=== PATIENT | male | born 1995 | race Two or more races ===

== ENCOUNTER 2020-04-22 16:16 | Emergency (ER) | payer MEDICAID, SELFPAY ==
[2020-04-22 17:00] VITALS: BP 136/76; PULSE 69; RESP 16; TEMP 37.1; O2SAT 98; BMI 36.4
--- NOTE | 2020-04-22 17:16 | HMH.EDUTC ---
[facility] [place] Clinical Impression: Exposure to COVID-19 virus Disposition: Home, Self-Care Condition on Discharge: Good Instructions: Preventing the Spread of Coronavirus Discharge Instructions Additional Instructions: Drink plenty of fluids. Take tylenol for pain or fever. Return if you begin to have difficulty breathing. Follow up with your regular doctor. GO TO THE ER FOR ANY WORSENING SYMPTOMS Referrals: PCP,No [Primary Care Provider] - Time of Disposition: 17:17 Medical Decision Making - Medical Records Medical records reviewed: No: I reviewed the patient's medical records. - Dex Inquiry Pt receiving controlled substance: No Vital Signs: 04/22/20 17:00 Temperature 98.7 F Temperature Source Oral Pulse Rate [Right Brachial] 69 Respiratory Rate 16 Blood Pressure [Right Arm] 136/76 Blood Pressure Mean [Right Arm] 96 Blood Pressure Source [Right Arm] Automatic Cuff Blood Pressure Position [Right Arm] Sitting 02 Sat by Pulse Oximetry 98 Oxygen Delivery Method Room Air Orders (Tests/Meds): ORDERS Category Date Time Status Covid-19 Nasal PCR Sendout Anthony Routine Lab 04/22/20 16:44 Ordered [facility] [place] - General Stated complaint: cov test Time Seen by Provider: 04/22/20 17:16 Mode of Arrival: Ambulatory Source of Information: Patient Limitations: No Limitations Description of Symptoms (Recalled from Triage Doc. by RN): PATIENT REQUESTING COVID TEST D/T EXPOSURE; DENIES SYMPTOMS HEENT Symptoms (Recalled from RN notes): No Resp Symptoms (Recalled from RN notes): No Skin Symptoms (Recalled from RN notes): No MS Symptoms (Recalled from RN notes): No Functional Status (Recalled from RN notes): WNL - History of Present Illness Provider Complaint: He states that he was exposed to covid-19 earlier this week. He denies any symptoms. - Related Data Home Medications Medication Instructions Recorded Confirmed Unobtainable 06/17/18 06/17/18 Allergies Allergy/AdvReac Type Severity Reaction Status Date / Time No Known Allergies Allergy Verified 06/17/18 19:54 - Worker's Comp Is this a Worker's Comp case?: No [facility] History - Hepatitis A Screen Drug use history?: No High risk sexual behaviors?: No History of sexually transmitted infection?: No Currently employed?: No Childcare worker?: No Do you have indoor plumbing?: Yes Do you have electricity?: Yes Attestation statement:: This patient has been screened for Hepatitis A risk factors. I have reviewed the patient's past medical history: Yes - Social History Alcohol Intake: never Occupational Status: other ROS Obtained: Yes All systems reviewed & no additional complaints - Constitutional Constitutional: Reports system reviewed and no additional complaints, except as docu - Eyes Eyes: Reports system reviewed and no additional complaints, except as docu - ENT Ears, Nose, Mouth, and Throat: Reports system reviewed and no additional complaints, except as docu - Cardiovascular Cardiovascular: Reports system reviewed and no additional complaints, except as docu - Respiratory Respiratory: Yes system reviewed and no additional complaints, except as docu - Gastrointestinal Gastrointestingal: Reports: system reviewed and no additional complaints, except as docu Physical Exam - General General appearance: alert, in no apparent distress - Head Head exam: atraumatic, normocephalic, normal inspection - Eye Eye exam: Present: normal appearance, PERRL, EOMI - ENT ENT exam: Present: normal exam, normal oropharynx, mucous membranes moist, TM's normal bilaterally, normal external ear exam - Neck Neck exam: Present: normal inspection, full ROM, trachea midline. Absent: meningismus, lymphadenopathy - Chest Chest inspection: Present: normal inspection, symmetric chest wall rise. Absent: tenderness - Respiratory Respiratory exam: Present: normal lung sounds bilaterally. Absent: respirator
[2020-04-22 17:22] VITALS: BP 136/76; PULSE 69; RESP 16; TEMP 37.1; O2SAT 98
[2020-04-24 14:04] LABS: Covid-19 Nasal PCR Sendout Lex Not Detected
== END 2020-04-22 17:25 | disposition home or self-care (01) ==
PROVIDERS: Emergency Provider Nurse Practitioner Family
DX: Z20.828 Contact with and (suspected) exposure to other viral communicable diseases (principal)
CPT/HCPCS: 99201; U0004

== ENCOUNTER 2024-06-09 01:51 | Emergency (ER) | payer SELFPAY ==
[2024-06-09 02:02] VITALS: BP 157/92; PULSE 87; RESP 20; TEMP 36.8; O2SAT 100; BMI 37.2
[2024-06-09 02:05] VITALS: BP 153/89; PULSE 75; RESP 18; O2SAT 96
--- NOTE | 2024-06-09 02:06 | PC.NURSE ---
Pt awake and alert States he was a daily drinker and quit on . Now having abd pain. Skin pink warm and dry Resp full and easy Abd soft and tender in RLQ and LLQ. +bowel sounds x4. Speech clear and appropriate
--- NOTE | 2024-06-09 02:14 | CT_ITS ---
PROCEDURE INFORMATION: Exam: CT Abdomen And Pelvis With Contrast Exam date and time: 06/09/2024 2:50 AM Age: 29 years old Clinical indication: Abdominal pain; Additional info: Low abd pain/burning sensation TECHNIQUE: Imaging protocol: Computed tomography of the abdomen and pelvis with contrast. Radiation optimization: All CT scans at this facility use at least one of these dose optimization techniques: automated exposure control; mA and/or kV adjustment per patient size (includes targeted exams where dose is matched to clinical indication); or iterative reconstruction. Contrast material: ISOVUE; Contrast volume: 75 ml; Contrast route: IV; COMPARISON: No relevant prior studies available. FINDINGS: Liver: Normal. No mass. Gallbladder and biliary ducts: Normal. No calcified stones. No ductal dilation. Pancreas: Normal. No ductal dilation. Spleen: Normal. No splenomegaly. Adrenal glands: Normal. No mass. Kidneys and ureters: Normal. No hydronephrosis. Stomach and bowel: Diverticulosis sigmoid colon. Appendix: No evidence of appendicitis. Intraperitoneal space: Unremarkable. No free air. No significant fluid collection. Vasculature: Unremarkable. No abdominal aortic aneurysm. Lymph nodes: Unremarkable. No enlarged lymph nodes. Urinary bladder: Unremarkable as visualized. Reproductive: Unremarkable as visualized. Bones/joints: Unremarkable. No acute fracture. Soft tissues: Unremarkable. IMPRESSION: Diverticulosis without CT evidence of acute diverticulitis.
[2024-06-09 02:18] LABS: Microscopic, Urine URINE MICROSCOPIC (MICROSCOPIC)
[2024-06-09 02:21] LABS: Appearance,Urine CLEAR (Clear); Bilirubin,Urine Negative (Negative); Blood, Urine Negative (Negative); Color,Urine YELLOW (Yellow); Glucose,Urine (UA) Negative (Negative); Ketones,Urine TRACE (Negative); Leukocyte Esterase,Urine Negative (Negative); Nitrate,Urine Negative (Negative); Protein,Urine Negative (Negative)
[2024-06-09 02:34] LABS: Squamous Epithelial Cell,Urine Occasional #/hpf (0-5)
[2024-06-09] MEDS: ONDANSETRON 4MG/2ML VIAL 4 MG IV (02:37)
[2024-06-09] MEDS: MORPHINE 4MG/ML SYRINGE 4 MG IV (02:37)
[2024-06-09] MEDS: LACTATED RINGERS 1000ML 1,000 ML 999 ML IV (02:37)
--- NOTE | 2024-06-09 02:37 | HMH.EDGENADL ---
Discharge Plan Disposition Patient Disposition: Home, Self-Care Condition: Good Prescriptions Prescriptions: New doxycycline hyclate 100 mg tablet 100 mg PO BID 10 Days Qty: 20 0RF Referrals Follow up/Referrals: Sammy Lara MD [Staff Physician] - See instructions (cystitis symptoms, epididymitis symptoms, reassuring workup) Provider,MD Heather [Primary Care Provider] - See instructions Activity Restrictions/Add. Instructions Additional Instructions/Restrictions: You were evaluated in the ER and are appropriate for discharge at this time. Take the prescribed antibiotics as directed, do not skip doses, do not stop taking them early. Drink plenty of water. Follow the results of your tests in the patient portal, we will call you if you test positive. If you do test positive, any sexual partners should present to primary care, urgent care, or ER for treatment. Wear a jockstrap or tight fitting underwear for testicular support to relieve discomfort. Follow-up with your primary care doctor for reevaluation in a few days. You have also been referred to urology for outpatient follow-up if your symptoms persist. Call them for an appointment. Return to the ER with new, worsening, or otherwise concerning symptoms. Clinical Impressions Clinical Impression: Epididymitis Instructions Patient Instructions: DI for Acute Abdominal Pain Print Language Print Language: Georgian Discharge ED Provider: Jonathon Flanagan Adult HPI General Chief complaint: Abdominal Pain Stated complaint: abd pain, pain with urination Time Seen by Provider: 06/09/24 02:05 Mode of Arrival: Ambulatory Source of Information: Patient Limitations: No Limitations Description of Symptoms (Recalled from ER Triage Doc. by RN): abdominal pain Pain with urination Saw the health dept Sunday to be checked for STI does not know results, Stopped drinking . Was a daily drinker History of Present Illness HPI narrative: 29-year-old male presents to the ER with lower abdominal pain and burning sensation. He states he does not have pain with urination but feels like his bladder is burning. Individual at bedside with the patient also reports he has some sensitivity at the tip of the penis, patient reports he has not had testicular pain. Patient reports he stopped drinking , and 05/29/2024, 11 days ago. He reports he had tremors, anxiety, nausea during his withdrawal but all of this has resolved. In the last few days he has developed the discomfort in his low abdomen and burning sensation of the bladder. He reports he also stopped using marijuana at the same time that he stopped drinking alcohol. He reports he had previously been a daily drinker and had gotten drunk every day. Patient reports he used to take blood pressure medication but became unable to get it from the pharmacy due to insurance reasons. He reports he was tested at the health department a week ago for STD but never heard the results. He reports he has not had fevers, vomiting, diarrhea, constipation, he has no chest pain, difficulty breathing, numbness, tingling, or weakness. He denies any known drug allergies. Related Data Previous Rx's ?Medication ?Instructions ?Recorded doxycycline hyclate 100 mg tablet 100 mg PO BID 10 days #20 tabs 06/09/24 Allergies Allergy/AdvReac Type Severity Reaction Status Date / Time No Known Allergies Allergy Verified 10/12/21 09:00 [facility] Disclaimer: The information contained in this section may have been updated after the patient was seen, as this information can be updated by other users. Social History Smoking Status: Current every day smoker alcohol intake: current alcohol intake frequency: a few times a week substance use type: marijuana current occupational status: employed Travel in the last 8 weeks: None current occupational exposures/hazards: No Have you lived/traveled outside [place] in past 30 days?: No Contact w/someone who lives/traveled outside US past 30 days?: No Exposure to someone with infectious disease in past 14 days?: No Do you have a fever (greater than 100.4 F or 38 C)?: No Have you tested positive for COVID-19: No Exposed to someone with COVID-19 in past 14 days?: No Do you have a sore throat?: No Do you have a cough?: No Do you have any weakness?: No Do you have any diarrhea?: No Are you experiencing any unusual bleeding?: No Do you have any muscle aches/pain?: No Do you have any abdominal pain?: Yes Are you experiencing loss of taste or smell?: No ROS Obtained: Yes Systems reviewed as appropriate & no additional complaints except as documented Per HPI Physical Exam General General appearance: alert, in no apparent distress and obese Head Head exam: atraumatic and normocephalic Eye Eye exam: Present PERRL and EOMI ENT ENT exam: Present mucous membranes moist Neck Neck exam: Present normal inspection and full ROM Chest Chest inspection: Present symmetric chest wall rise Respiratory Respiratory exam: Present normal lung sounds bilaterally; Absent respiratory distress, wheezes or stridor Cardiovascular Cardiovascular exam: Present regular rate and normal rhythm Abdominal Exam Abdominal exam: Present soft and tenderness (Suprapubic); Absent distention, guarding, rebound or rigidity exam: Present normal inspection (No lesions), normal testicular lie and other (Epididymal tenderness bilaterally; perinatal educator present for exam); Absent testicular tenderness, urethral discharge or scrotal swelling Extremities Exam Extremities exam: Present full ROM; Absent edema Neurological Exam Neurological exam: Present alert and oriented X3; Absent motor sensory deficit Psychiatric Psychiatric exam: Present normal affect and normal mood Skin Skin exam: Present warm and dry Medical Decision Making Medical Records Medical records reviewed: Yes I reviewed the patient's medical records. Screening: Per USPSTF and CDC recommendations, given the prevalence of disease in our region, it is our hospital?s policy to screen for HIV and viral Hepatitis for all patients aged 18 and over and those with ongoing risk factors. MR Comment: Patient has limited records within our system. Most recent record that was available for review was from 10/12/2021 when patient was evaluated by podiatry for concerns of a lesion on his right foot. He had a wart removed and then developed a blister. Dex Inquiry Pt receiving controlled substance: No Vital Signs: 06/09/24 02:02 06/09/24 02:05 06/09/24 03:19 Temperature 98.3 F Temperature Source Oral Pulse Rate 75 69 Pulse Rate [Right Brachial] 87 Respiratory Rate 20 18 18 Blood Pressure 153/89 H 121/67 Blood Pressure [Right Arm] 157/92 H Blood Pressure Mean [Right Arm] 113 Blood Pressure Source [Right Arm] Automatic Cuff 02 Sat by Pulse Oximetry 100 96 100 Oxygen Delivery Method Room Air Room Air Room Air Lab Data Lab Results 06/09/24 02:00: Urine Color Yellow, Urine Appearance Clear, Urine pH 6.0, Ur Specific [place] 1.010, Urine Protein Negative, Urine Glucose (UA) Negative, Urine Ketones Trace, Urine Blood Negative, Urine Nitrate Negative, Urine Bilirubin Negative, Urine Urobilinogen 4.0, Ur Leukocyte Esterase Negative, Urine RBC None, Urine WBC None, Ur Squamous Epith Cells Occasional, Urine Bacteria None 06/09/24 02:31: WBC 7.6, RBC 4.67, Hgb 13.8 L, Hct 39.5 L, MCV 84.6, MCH 29.6, MCHC 34.9, RDW 12.6, Plt Count 206, MPV 11.3 H, Neut % (Auto) 54.6, Lymph % (Auto) 30.9, Stephens % (Auto) 8.8, Eos % (Auto) 4.5, Baso % (Auto) 1.1, Neut # (Auto) 4.1, Lymph # (Auto) 2.3, Stephens # (Auto) 0.7, Eos # (Auto) 0.3, Baso # (Auto) 0.1, PT 12.7 H, INR 1.17 H, Sodium 140, Potassium 3.4 L, Chloride 104, Carbon Dioxide 25, Anion Gap 14.4, BUN 11, Creatinine 0.90, Estimated Creat Clear 198, Estimated GFR 100, Est GFR ( Amer) 122, Glucose 105 H, Lactate 0.6 L, Calcium 9.5, Total Bilirubin 1.4 H, AST 28, ALT 22, Alkaline Phosphatase 56, Total Protein 7.6, Albumin 4.6, Globulin 3.0, Albumin/Globulin Ratio 1.5, Lipase 159 06/09/24 02:31 06/09/24 02:31 Orders (Tests/Meds): ED MEDICATIONS Generic Name Dose Route Start Last Admin Trade Name Freq PRN Reason Stop Dose Admin Sodium Chloride 10 ml 06/09/24 03:04 06/09/24 03:05 Sodium Chloride 0.9% 10ml Syr (Rad Only) IV 07/09/24 03:03 10 ml NEEDED PRN Administration Maintain IV Site Discontinued Medications Generic Name Dose Route Start Last Admin Trade Name Freq PRN Reason Stop Dose Admin Acetaminophen 1,000 mg 06/09/24 03:29 06/09/24 03:38 Acetaminophen 500mg Tab PO 06/09/24 03:30 1,000 mg ONCE ONE Administration Ceftriaxone Sodium 500 mg 06/09/24 03:23 06/09/24 03:36 Ceftriaxone 500mg Vial IM 06/09/24 03:24 500 mg ONCE ONE Administration Doxycycline Hyclate 100 mg 06/09/24 03:23 06/09/24 03:37 Doxycycline Hycl 100 Mg Tablet PO 06/09/24 03:24 100 mg ONCE ONE Administration Lactated Ringer's 1,000 mls @ 999 mls/hr 06/09/24 02:18 06/09/24 02:37 Lactated Ringer's 1000 Ml Bag IV 06/09/24 03:18 999 mls/hr .Q1H1M ONE Administration Ibuprofen 600 mg 06/09/24 03:29 06/09/24 03:38 Ibuprofen 600 Mg Tablet PO 06/09/24 03:30 600 mg ONCE ONE Administration Iopamidol 75 ml 06/09/24 03:04 06/09/24 03:04 Iopamidol-370 (76%);100ml Bottle IV 06/09/24 03:05 75 ml ONCE ONE Administration Lidocaine HCl 0 ml 06/09/24 03:23 06/09/24 03:36 Lidocaine 1% 5ml Pf Vial IM 06/09/24 03:24 5 ml ONCE ONE Administration Morphine Sulfate 4 mg 06/09/24 02:18 06/09/24 02:37 Morphine 4mg/Ml Syringe IV 06/09/24 02:19 4 mg ONCE ONE Administration Ondansetron HCl 4 mg 06/09/24 02:18 06/09/24 02:37 Ondansetron 4mg/2ml Vial IV 06/09/24 02:19 4 mg ONCE ONE Administration ORDERS Category Date Time Status CT abdomen pelvis w con Stat Cat Scan 06/09/24 02:14 Completed Complete Blood Count Auto Diff Stat Lab 06/09/24 02:31 Completed Comprehensive Metabolic Panel Stat Lab 06/09/24 02:31 Completed HIV Combo Routine Lab 06/09/24 02:31 Received Hepatitis C Ab Qual. W/ RFX Routine Lab 06/09/24 02:31 Received Lactic Acid Stat Lab 06/09/24 02:31 Completed Lipase Stat Lab 06/09/24 02:31 Completed Prothrombin Time INR Stat Lab 06/09/24 02:31 Completed Urinalysis and Microscopic Stat Lab 06/09/24 02:00 Completed Medical Decision Narrative: In summary, this 29-year-old male who self-reports a history of alcohol abuse and marijuana use as well as hypertension which is untreated presents to the emergency department today with lower abdominal pain/burning sensation. On initial evaluation patient is hemodynamically stable, afebrile, exam notable for suprapubic discomfort with palpation but no rebound or guarding, nonacute abdomen, patient does not have any genital lesions or abnormal urethral discharge however he does have small testes with normal lie, no scrotal swelling, no testicular tenderness, however he does have epididymal tenderness bilaterally. Differential diagnosis includes but is not limited to UTI, appendicitis, gonorrhea, chlamydia, urethritis, epididymitis, kidney stone, bladder stone, also considered colitis, diverticulitis, among others. Based on these concerns, I ordered serum labs, CT imaging, urine studies. Patient received morphine, IV fluids, for treatment. Labs personally reviewed demonstrate no leukocytosis, mild anemia with hemoglobin 13.8 is nonactionable, normal platelets, PT/INR slightly elevated but nonactionable at this time, mild hyperbilirubinemia but no transaminitis, trace hypokalemia, UA with trace ketones but no infectious findings. CT abdomen pelvis personally interpreted does not demonstrate acute intra-abdominal pathology, see radiology read for final interpretation. On reevaluation patient continues to be stable. He states his pain is not significantly changed. I am not going to administer any additional narcotic pain medications at this time since he has no acute pathology identified on workup. I did give Tylenol, ibuprofen. After discussion with the patient, he is worried about possible STD due to using a dirty toy. I am going to empirically treat with Rocephin and doxycycline for epididymitis. He is going to follow-up with the results in his patient portal. I encouraged him to wear a jockstrap or tight fitting underwear for testicular support, I also encouraged him to drink plenty of fluids and take [id number] medications if necessary for pain. I prescribed doxycycline for outpatient management. I also instructed him to have any sexual partners follow-up for treatment if his STI testing is positive. Patient was given instructions on symptomatic management, follow up instructions, and return precautions for the emergency department. Patient indicated understanding and was discharged in stable condition. Critical Care Critical Care Time Critical Care Time: No
[2024-06-09 02:41] LABS: Basophils # 0.1 K/mm3 (0-0.2); Basophils % 1.1 % (0.1-2.0); Eosinophils # 0.3 K/mm3 (0.0-0.4); Eosinophils % 4.5 % (0.1-12.0); Hematocrit 39.5 % (42.0-52.0); Hemoglobin 13.8 g/dL (14.1-18.0); Lymphocytes # 2.3 K/mm3 (0.7-4.5); Lymphocytes % 30.9 % (10-50); Mean Corpuscular HGB Conc 34.9 g/dL (31.8-35.4); Mean Corpuscular Hemoglobin 29.6 pg (27.0-31.2); Mean Corpuscular Volume 84.6 fl (80-94); Mean Platelet Volume 11.3 fl (7.4-10.4); Monocytes # 0.7 K/mm3 (0.1-1.0); Monocytes % 8.8 % (1.7-9.3); Neutrophils # 4.1 K/mm3 (1.8-7.8); Neutrophils % 54.6 % (37.0-80.0); Platelet Count 206 K/mm3 (142-424); Red Blood Count 4.67 M/mm3 (4.60-6.20); Red Cell Distribution Width 12.6 % (11.5-17.5); White Blood Count 7.6 K/mm3 (4.8-10.8)
[2024-06-09 02:45] LABS: Albumin Level 4.6 g/dl (3.5-5.0); Chloride 104 mmol/L (98-107); Potassium 3.4 mmoL/L (3.5-5.1); Sodium 140 mmol/L (136-145)
[2024-06-09 02:47] LABS: Blood Urea Nitrogen 11 mg/dl (9-20); Creatinine Clearance Estimated 198 mL/min (50-200); Estimated Glomerular Filt Rate 100 ml/min (>60); GFR (African American) 122 ML/MIN (>60)
[2024-06-09 02:48] LABS: Alanine Aminotransferase 22 U/L (12-78); Albumin/Globulin Ratio 1.5 (1.1-1.8); Alkaline Phosphatase 56 U/L (38-126); Anion Gap 14.4 mEq/L (5-15); Aspartate Amino Transferase 28 U/L (17-59); Bilirubin,Total 1.4 mg/dl (0.2-1.3); Carbon Dioxide 25 mmol/L (22.0-30.0); Lipase 159 U/L (23-300); Total Protein,Serum 7.6 g/dl (6.3-8.2)
[2024-06-09 02:49] LABS: Calcium 9.5 mg/dl (8.4-10.2); Glucose 105 mg/dl (74-100); INR 1.17 (0.9-1.1); Lactic Acid 0.6 mmol/L (0.7-2.1); Prothrombin Time 12.7 seconds (9.2-12.1)
[2024-06-09] MEDS: IOPAMIDOL-370 (76%);100ML BOTTLE 75 ML IV (03:04)
[2024-06-09] MEDS: SODIUM CHLORIDE 0.9% 10ML SYR (RAD ONLY) 10 ML IV (03:05)
[2024-06-09 03:19] VITALS: BP 121/67; PULSE 69; RESP 18; O2SAT 100
[2024-06-09] MEDS: LIDOCAINE 1% 5ML PF VIAL IM (03:36)
[2024-06-09] MEDS: cefTRIAXone 500MG VIAL 500 MG IM (03:36)
[2024-06-09] MEDS: DOXYCYCLINE HYCL 100 MG TABLET PO (03:37)
[2024-06-09] MEDS: ACETAMINOPHEN 500MG TAB 1000 MG PO (03:38)
[2024-06-09] MEDS: IBUPROFEN 600 MG TABLET PO (03:38)
[2024-06-09 03:43] LABS: HIV Combo NEGATIVE (Negative)
[2024-06-09 03:49] VITALS: BP 135/75; PULSE 66; RESP 18; TEMP 37.2; O2SAT 99
[2024-06-09 03:51] LABS: Hepatitis C Ab Qual. W/ RFX NEGATIVE (Negative)
[2024-06-10 20:11] LABS: Neisseria gonorrhoeae, NAA Negative (Negative)
== END 2024-06-09 03:58 | disposition home or self-care (01) ==
PROVIDERS: Emergency Provider Emergency Medicine
DX: N45.1 Epididymitis (principal); R10.30 Lower abdominal pain, unspecified; R39.89 Other symptoms and signs involving the genitourinary system; N48.89 Other specified disorders of penis; I10 Essential (primary) hypertension; F10.10 Alcohol abuse, uncomplicated; F12.10 Cannabis abuse, uncomplicated; Z72.0 Tobacco use
CPT/HCPCS: 74177; 80053; 81001; 83605; 83690; 85025; 85610; 86803; 87389; 87491; 87591; 96361; 96372; 96374; 96375; 99285; J0696; J2270; J2405; J7120; Q9967

== ENCOUNTER 2024-12-05 15:02 | Emergency (ER) | payer SELFPAY ==
[2024-12-05] VITALS (7 sets, daily range): BP systolic 104–149; BP diastolic 44–91; PULSE 56–77; RESP 17–19; TEMP 36.7–37.1; O2SAT 98–100; BMI 23.8
--- OUTSIDE RECORDS SUMMARY | 2024-12-05 15:17 | XMS_ITS | Clinical Summary ---
[facility] Address [address] [place] [address] Care Team Providers Care Nozzle Worker Name Role Phone Provider, No Known Primary Care Provider Unavail able Allergies No known active allergies Medications No known medications Social History Tobacco Use Types Packs/Day Years Used Date Smoking Tobacco: Never Abuse Screen Answer Date Recorded Unsafe at Home or Work/School Not on file Feels Threatened by Someone? Not on file 04/2023 Does Anyone Keep You from Co ntacting Others or Doint Things Outside the Home? Not on file 02/22/2023 Physical Sign of Abuse Present Not on file 1 Housing Stability Answer Date Recorded Current Living Arrangements Not on file 02/11 Potentially Unsafe Housing Conditions Not on jatin e 02/22/2023 Family and Community Support Answer Owen e Recorded Help with Day-to-Day Activities Not on file 02/22/2023 Lonely or Isolated Not on file 02/22/2023 Employment Answer Date Recorded Do you want help finding or keeping work or a alicia b? Not on file 02/22/2023 Disabilities Answer Date Recorded Concentrating, Remembering, or Making Decisions Difficulty Not on file 02/22/2023 Doing Errands Independently Difficulty Not on fi le 02/22/2023 Education Answer Date Recorded Help with school or training? Not on file Preferred Language Not on file 02/22/2023 Sex and Gender Information Value Date Recorded Sex Assigned at Not on file Legal Sex Male 1:15 PM EDT Gender Identity Not on file Sexual Orientation Not on file Last Filed Vital Signs Vital Sign Reading Time Taken Comments Blood Pressure 150/90 06/20/2019 6:51 PM EST Pulse 99 06/20/2019 6:51 PM EST Temperature 37.2 C (98.9 F) 06/20/2019 6:51 PM EST Respiratory Rate 15 06/20/2019 6:51 PM EST Oxygen Saturation 98% 06/20/2019 6:51 PM EST Inhaled Oxygen Concentration - - Weight 131 kg (288 lb 3.2 oz) 06/20/2019 6:51 PM EST Height 175.3 cm (5' 9 ) 06/20/2019 6:51 PM EST Body Mass Index 42.56 06/20/2019 6:51 PM EST Plan of Treatment Health Maintenance Due Date Last Done Comments TDAP/TD VACCINES (1 - Tdap) 02/13/2015 ANNUAL PHYSICAL 02/09/2019 HEPATITIS C SCREENING 02/09/2019 COVID-19 Vaccine (2023-2 5 season) 2024 INFLUENZA VACCINE 02/11/2025 Pneumococcal Vaccine 0-49 Aged Out No longer eligible based on patient's age to complete this topic Insurance Care Teams Nozzle Worker Relationship Specialty Start Date End Date Provider, No Known [facility] [place] [address] PCP - General 02/09/19
--- NOTE | 2024-12-05 15:19 | ED_ITS ---
Discharge Plan Disposition Patient Disposition: Home, Self-Care Condition: Good Prescriptions Prescriptions: No Action doxycycline hyclate 100 mg tablet 100 mg PO BID 10 Days Qty: 20 0RF Referrals Follow up/Referrals: Provider,Referral, MD [Primary Care Provider, Medical] - See instructions Activity Restrictions/Add. Instructions Additional Instructions/Restrictions: We did not find any serious or life-threatening condition today. However if you have persistent new or worsening signs or symptoms please follow-up with your PCP return to the ER as needed. Clinical Impressions Clinical Impression: Abdominal pain, suprapubic Instructions Patient Instructions: DI for Urinary Tract Infection (UTI), DI for Urinary Tract Infection in Children Print Language Print Language: [place] Island[place] Discharge ED Provider: Jt Rubio Adult HPI <KRISTINE Domingo - Last Filed: 12/05/24 18:45> General Chief complaint: Urogenital-Male Stated complaint: frequency with urination Time Seen by Provider: 12/05/24 15:19 History of Present Illness HPI narrative: PickPatient presents for evaluation of suprapubic pain. Patient states that for the last 2 days he has had abdominal wall pain. He denies any trauma or injury abdominal pain nausea vomiting diarrhea dysuria hematuria. Related Data Previous Rx's ?Medication ?Instructions ?Recorded doxycycline hyclate 100 mg tablet 100 mg PO BID 10 day s #20 tabs 06/09/24 Allergies Allergy/AdvReac Type Severity Reaction Status Date / Time No Known Allergies Allergy Verified 12/05/24 15:36 PFSH <KRISTINE Domingo - Last Filed: 12/05/24 18:45> [facility] Disclaimer: The information contained in this section may have been updated after the patient was seen, as this information can be updated by other users. Social History Smoking Status: Never smoker alcohol intake: current alcohol intake frequency: a few times a week substance use type: marijuana current occupational status: employed Travel in the last 8 weeks?: None current occupational exposures/hazards: No Have you lived/traveled outside [place] in past 30 days?: No Contact w/someone who lives/traveled outside US past 30 days?: No Exposure to someone with infectious disease in past 14 days?: No Do you have a fever (greater than 100.4 F or 38 C)?: No Have you tested positive for COVID-19?: No Exposed to someone with COVID-19 in past 14 days?: No Do you have a sore throat?: No Do you have a cough?: No Do you have any weakness?: No Do you have any diarrhea?: No Are you experiencing any unusual bleeding?: No Do you have any muscle aches/pain?: No Do you have any abdominal pain?: No Are you experiencing loss of taste or smell?: No <KRISTINE Domingo - Last Filed: 12/05/24 18:45> ROS Obtained: Yes Systems reviewed as appropriate & no additional complaints except as documented Physical Exam <KRISTINE Domingo - Last Filed: 12/05/24 18:45> General General appearance: alert Respiratory Respiratory exam: Present normal lung sounds bilaterally Cardiovascular Cardiovascular exam: Present regular rate Neurological Exam Neurological exam: Present alert and oriented X3 Medical Decision Making <KRISTINE Domingo - Last Filed: 12/05/24 18:45> Medical Records Medical records reviewed: Yes I reviewed the patient's medical records. Screening: Per USPSTF and CDC recommendations, given the prevalence of disease in our region, it is our hospital?s policy to screen for HIV and viral Hepatitis for all patients aged 18 and over and those with ongoing risk factors. Dex Inquiry Pt receiving controlled substance: No Vital Signs: 12/05/24 15:32 12/05/24 17:07 12/05/24 17:24 Temperature 98.1 F Temperature Source Oral Pulse Rate 56 L 70 Pulse Rate [Left Brachial] 70 Respiratory Rate 17 Blood Pressure 105/54 L 104/44 L Blood Pressure [Left Arm] 149/91 H Blood Pressure Mean Blood Pressure Mean [Left Arm] 110 Blood Pressure Source Blood Pressure Position 02 Sat by Pulse Oximetry 98 98 99 Oxygen Delivery Method Room Air Room Air 12/05/24 17:30 12/05/24 18:01 12/05/24 19:00 Temperature Temperature Source Pulse Rate 58 L 66 66 Pulse Rate [Left Brachial] Respiratory Rate Blood Pressure 113/65 145/89 H 139/86 Blood Pressure [Left Arm] Blood Pressure Mean 96 Blood Pressure Mean [Left Arm] Blood Pressure Source Blood Pressure Position 02 Sat by Pulse Oximetry 99 98 100 Oxygen Delivery Method Room Air 12/05/24 19:17 Temperature 98.7 F Temperature Source Oral Pulse Rate 77 Pulse Rate [Left Brachial] Respiratory Rate 19 Blood Pressure 132/72 Blood Pressure [Left Arm] Blood Pressure Mean Blood Pressure Mean [Left Arm] Blood Pressure Source Automatic Cuff Blood Pressure Position Sitting 02 Sat by Pulse Oximetry Oxygen Delivery Method Room Air Lab Data Lab results reviewed: Yes I reviewed the patient's lab results. Lab Results 12/05/24 15:20: Urine Color Yellow, Urine Appearance Clear, Urine pH 6.0, Ur Specific Gerber 1.020, Urine Protein Negative, Urine Glucose (UA) Negative, Urine Ketones Negative, Urine Blood Negative, Urine Nitrate Negative, Urine Bilirubin Negative, Urine Urobilinogen 0.2, Ur Leukocyte Esterase Negative, Urine WBC Occasional, Ur Squamous Epith Cells Occasional, Urine Bacteria Trace, Ur C. trach DNA (PCR) Negative, U N.gonorrhoeae DNA PCR Negative, T. vaginalis (PCR) Negative 12/05/24 16:15: WBC 7.5, RBC 5.42, Hgb 15.7, Hct 46.8, MCV 86.3, MCH 29.0, MCHC 33.5, RDW 13.8, Plt Count 219, MPV 11.2 H, Neut % (Auto) 57.3, Lymph % (Auto) 29.2, Ingham % (Auto) 6.8, Eos % (Auto) 5.1, Baso % (Auto) 1.3, Neut # (Auto) 4.3, Lymph # (Auto) 2.2, Ingham # (Auto) 0.5, Eos # (Auto) 0.4, Baso # (Auto) 0.1, Sodium 138, Potassium 4.1, Chloride 103, Carbon Dioxide 29, Anion Gap 10.1, BUN 9, Creatinine 0.90, Estimated Creat Clear 126, Estimated GFR 100, Est GFR ( Amer) 122, Glucose 89, Calcium 10.0, Total Bilirubin 1.1, AST 24, ALT 18, Alkaline Phosphatase 64, Total Protein 8.8 H, Albumin 4.2, Globulin 4.6 H, A lbumin/Globulin Ratio 0.9 L 12/05/24 16:15 12/05/24 16:15 Orders (Tests/Meds): ED MEDICATIONS Discontinued Medications Generic Name Dose Route Start Last Admin Trade Name Freq PRN Reason Stop Dose Admin Acetaminophen 1,000 mg 12/05/24 15:38 12/05/24 16:21 Acetaminophen 500mg Tab PO 12/05/24 15:39 1,000 mg ONCE ONE Administration Sodium Chloride 1,000 mls @ 999 mls/hr 12/05/24 15:38 12/05/24 16:13 Sod Chlor 0.9% 1000ml Bag IV 12/05/24 16:38 999 mls/hr .Q1H1M ONE Administration Iopamidol 75 ml 12/05/24 16:47 12/05/24 16:47 Iopamidol-370 (76%);100ml Bottle IV 12/05/24 16:48 75 ml ONCE ONE Administration Ketorolac Tromethamine 15 mg 12/05/24 15:38 12/05/24 16:21 Ketorolac 30mg/Ml Vial IV 12/05/24 15:39 15 mg ONCE ONE Administration Ondansetron HCl 4 mg 12/05/24 15:38 12/05/24 16:21 Ondansetron 4mg/2ml Vial IV 12/05/24 15:39 4 mg ONCE ONE Administration Sodium Chloride 10 ml 12/05/24 16:47 12/05/24 16:47 Sodium Chloride 0.9% 10ml Syr (Rad Only) IV 12/05/24 16:48 10 ml ONCE ONE Administration ORDERS Category Date Time Status CT abdomen pelvis w con Stat Cat Scan 12/05/24 15:38 Completed CBC w/Auto Diff [Complete Blood Count Auto Diff] Stat Lab 12/05/24 16:15 Completed CMP [Comprehensive Metabolic Panel] Stat Lab 12/05/24 16:15 Completed UA [Urinalysis and Microscopic] Stat Lab 12/05/24 15:20 Completed Urine Chlam/Gono/Trich, LINDY Stat Lab 12/05/24 15:20 Completed Medical Decision Narrative: In summary patient is a 29-year-old male who presents to the emergency department for evaluation of upper pubic abdominal wall pain. Patient is hemodynamically stable upon arrival, afebrile. Physical exam is remarkable for tenderness to palpation over the symphysis pubis and lower abdominal wall but there is no palpable masses contusions abrasions indurations or deformities. External genitalia are intact. Testicles have normal lie and there is no tenderness. I am unable to appreciate inguinal defect or inguinal hernia. The remainder of his abdomen is soft without rebound or guarding or rigidity normal bowel sounds. Differential diagnosis includes abdominal wall strain versus cystitis versus hernia versus diverticulitis versus constipation versus UTI etc. Initial workup will be conducted with hematologic labs CT scan abdomen pelvis. Initial interventions include crystalloid bolus Toradol Tylenol Zofran. Initial workup reviewed by me shows his hematologic labs are nonactionable, urinalysis is bland and my informal interpretation of his CT scan abdomen pelvis shows no acute processes prior to radiology read. Please see final read from interpretation.. Upon repeat evaluation patient is tolerating oral intake and reports moderate improvement after initial intervention. Given this patient advised to continue taking Tylenol with ibuprofen avoid straining his abdominal wall should he have any persistent or worsening signs or symptoms to follow-up with his PCP return to the ER as needed. <Jt Rubio MD - Last Filed: 12/06/24 09:34> Vital Signs: 12/05/24 15:32 12/05/24 17:07 12/05/24 17:24 Temperature 98.1 F Temperature Source Oral Pulse Rate 56 L 70 Pulse Rate [Left Brachial] 70 Respiratory Rate 17 Blood Pressure 105/54 L 104/44 L Blood Pressure [Left Arm] 149/91 H Blood Pressure Mean Blood Pressure Mean [Left Arm] 110 Blood Pressure Source Blood Pressure Position 02 Sat by Pulse Oximetry 98 98 99 Oxygen Delivery Method Room Air Room Air 12/05/24 17:30 12/05/24 18:01 12/05/24 19:00 Temperature Temperature Source Pulse Rate 58 L 66 66 Pulse Rate [Left Brachial] Respiratory Rate Blood Pressure 113/65 145/89 H 139/86 Blood Pressure [Left Arm] Blood Pressure Mean 96 Blood Pressure Mean [Left Arm] Blood Pressure Source Blood Pressure Position 02 Sat by Pulse Oximetry 99 98 100 Oxygen Delivery Method Room Air 12/05/24 19:17 Temperature 98.7 F Temperature Source Oral Pulse Rate 77 Pulse Rate [Left Brachial] Respiratory Rate 19 Blood Pressure 132/72 Blood Pressure [Left Arm] Blood Pressure Mean Blood Pressure Mean [Left Arm] Blood Pressure Source Automatic Cuff Blood Pressure Position Sitting 02 Sat by Pulse Oximetry Oxygen Delivery Method Room Air Lab Data Lab Results 12/05/24 15:20: Urine Color Yellow, Urine Appearance Clear, Urine pH 6.0, Ur Specific Gerber 1.020, Urine Protein Negative, Urine Glucose (UA) Negative, Urine Ketones Negative, Urine Blood Negative, Urine Nitrate Negative, Urine Bilirubin Negative, Urine Urobilinogen 0.2, Ur Leukocyte Esterase Negative, Urine WBC Occasional, Ur Squamous Epith Cells Occasional, Urine Bacteria Trace, Ur C. trach DNA (PCR) Negative, U N.gonorrhoeae DNA PCR Negative, T. vaginalis (PCR) Negative 12/05/24 16:15: WBC 7.5, RBC 5.42, Hgb 15.7, Hct 46.8, MCV 86.3, MCH 29.0, MCHC 33.5, RDW 13.8, Plt Count 219, MPV 11.2 H, Neut % (Auto) 57.3, Lymph % (Auto) 29.2, Ingham % (Auto) 6.8, Eos % (Auto) 5.1, Baso % (Auto) 1.3, Neut # (Auto) 4.3, Lymph # (Auto) 2.2, Ingham # (Auto) 0.5, Eos # (Auto) 0.4, Baso # (Auto) 0.1, Sodium 138, Potassium 4.1, Chloride 103, Carbon Dioxide 29, Anion Gap 10.1, BUN 9, Creatinine 0.90, Estimated Creat Clear 126, Estimated GFR 100, Est GFR ( Amer) 122, Glucose 89, Calcium 10.0, Total Bilirubin 1.1, AST 24, ALT 18, Alkaline Phosphatase 64, Total Protein 8.8 H, Albumin 4.2, Globulin 4.6 H, A lbumin/Globulin Ratio 0.9 L Orders (Tests/Meds): ED MEDICATIONS Discontinued Medications Generic Name Dose Route Start Last Admin Trade Name Freq PRN Reason Stop Dose Admin Acetaminophen 1,000 mg 12/05/24 15:38 12/05/24 16:21 Acetaminophen 500mg Tab PO 12/05/24 15:39 1,000 mg ONCE ONE Administration Sodium Chloride 1,000 mls @ 999 mls/hr 12/05/24 15:38 12/05/24 16:13 Sod Chlor 0.9% 1000ml Bag IV 12/05/24 16:38 999 mls/hr .Q1H1M ONE Administration Iopamidol 75 ml 12/05/24 16:47 12/05/24 16:47 Iopamidol-370 (76%);100ml Bottle IV 12/05/24 16:48 75 ml ONCE ONE Administration Ketorolac Tromethamine 15 mg 12/05/24 15:38 12/05/24 16:21 Ketorolac 30mg/Ml Vial IV 12/05/24 15:39 15 mg ONCE ONE Administration Ondansetron HCl 4 mg 12/05/24 15:38 12/05/24 16:21 Ondansetron 4mg/2ml Vial IV 12/05/24 15:39 4 mg ONCE ONE Administration Sodium Chloride 10 ml 12/05/24 16:47 12/05/24 16:47 Sodium Chloride 0.9% 10ml Syr (Rad Only) IV 12/05/24 16:48 10 ml ONCE ONE Administration ORDERS Category Date Time Status CT abdomen pelvis w con Stat Cat Scan 12/05/24 15:38 Completed CBC w/Auto Diff [Complete Blood Count Auto Diff] Stat Lab 12/05/24 16:15 Completed CMP [Comprehensive Metabolic Panel] Stat Lab 12/05/24 16:15 Completed UA [Urinalysis and Microscopic] Stat Lab 12/05/24 15:20 Completed Urine Chlam/Gono/Trich, LINDY Stat Lab 12/05/24 15:20 Completed Medical Decision Narrative: In summary patient is a 29-year-old male who presents to the emergency department for evaluation of upper pubic abdominal wall pain. Patient is hemodynamically stable upon arrival, afebrile. Physical exam is remarkable for tenderness to palpation over the symphysis pubis and lower abdominal wall but there is no palpable masses contusions abrasions indurations or deformities. External genitalia are intact. Testicles have normal lie and there is no tenderness. I am unable to appreciate inguinal defect or inguinal hernia. The remainder of his abdomen is soft without rebound or guarding or rigidity normal bowel sounds. Differential diagnosis includes abdominal wall strain versus cystitis versus hernia versus diverticulitis versus constipation versus UTI etc. Initial workup will be conducted with hematologic labs CT scan abdomen pelvis. Initial interventions include crystalloid bolus Toradol Tylenol Zofran. Initial workup reviewed by me shows his hematologic labs are nonactionable, urinalysis is bland and my informal interpretation of his CT scan abdomen pelvis shows no acute processes prior to radiology read. Please see final read from interpretation.. Upon repeat evaluation patient is tolerating oral intake and reports moderate improvement after initial intervention. Given this patient advised to continue taking Tylenol with ibuprofen avoid straining his abdominal wall should he have any persistent or worsening signs or symptoms to follow-up with his PCP return to the ER as needed. I was consulted by the EPHRAIM, and we discussed the complexity of the problems being addressed. I approve the treatment and management plan for this patient's care in the emergency department, thus performing a substantive portion of the medical decision making. Radiology interpretation of CT imaging shows diverticulosis without diverticulitis. No other acute findings within the abdomen or pelvis. Jt Rubio MD Critical Care <KRISTINE Domingo - Last Filed: 12/05/24 18:45> Critical Care Time Critical Care Time: No
--- NOTE | 2024-12-05 15:38 | CT_ITS ---
PROCEDURE INFORMATION: Exam: CT Abdomen And Pelvis With Contrast Exam date and time: 12/05/2024 4:47 PM Age: 29 years old Clinical indication: Abdominal pain; Additional info: Suprapubic abdominal pain TECHNIQUE: Imaging protocol: Computed tomography of the abdomen and pelvis with contrast. Radiation optimization: All CT scans at this facility use at least one of these dose optimization techniques: automated exposure control; mA and/or kV adjustment per patient size (includes targeted exams where dose is matched to clinical indication); or iterative reconstruction. Contrast material: ISOVUE; Contrast volume: 75 ml; Contrast route: IV; COMPARISON: CT ABDOMEN PELVIS W CON 06/09/2024 2:50 AM FINDINGS: Lungs: There is minimal atelectasis in the right lung base. Liver: The liver is unremarkable. Gallbladder and biliary ducts: The gallbladder is unremarkable. No biliary ductal dilatation. Pancreas: The pancreas is unremarkable. Spleen: There are granuloma in the spleen. Adrenal glands: The adrenal glands are unremarkable. Kidneys and ureters: The kidneys are unremarkable. No hydronephrosis. Stomach and bowel: There is diverticulosis of the sigmoid colon again present without evidence of diverticulitis. No bowel obstruction seen. Appendix: The appendix is normal on coronal image 44. Intraperitoneal space: No free air. No significant ascites. Retroperitoneal space: Visualized retroperitoneal structures grossly negative with no obvious hematoma identified. Vasculature: The portal vein superior mesenteric vein and splenic vein are patent. The aorta is unremarkable. Visualized IVC unremarkable. The celiac and SMA are patent. Lymph nodes: No pathologic lymphadenopathy identified. Urinary bladder: The bladder is partially distended but otherwise unremarkable. Reproductive: The prostate is unremarkable. Bones/joints: No acute osseous abnormality. Soft tissues: Soft tissues are unremarkable as visualized. IMPRESSION: Sigmoid colonic diverticulosis without acute diverticulitis unchanged. No acute findings.
[2024-12-05 15:48] LABS: Microscopic, Urine URINE MICROSCOPIC (MICROSCOPIC)
[2024-12-05 15:52] LABS: Bilirubin,Urine Negative (Negative); Color,Urine YELLOW (Yellow); Glucose,Urine (UA) Negative (Negative); Ketones,Urine Negative (Negative); Leukocyte Esterase,Urine Negative (Negative); PH,Urine 6.0 (5.0-8.5); Protein,Urine Negative (Negative); Specific Gravity, Urine 1.020 (1.005-1.030); Urobilinogen,Urine 0.2 EU/dl (0.2)
[2024-12-05 16:10] LABS: Bacteria,Urine Trace /lpf; Squamous Epithelial Cell,Urine Occasional #/hpf (0-5); WBC,Urine Occasional #/hpf (0-3)
[2024-12-05] MEDS: 0.9 % SODIUM CHLORIDE 1000ML 1,000 ML 999 ML IV (16:13)
[2024-12-05] MEDS: ACETAMINOPHEN 500MG TAB 1000 MG PO (16:21)
[2024-12-05] MEDS: KETOROLAC 30MG/ML VIAL 15 MG IV (16:21)
[2024-12-05] MEDS: ONDANSETRON 4MG/2ML VIAL 4 MG IV (16:21)
[2024-12-05 16:30] LABS: Hematocrit 46.8 % (42.0-52.0); Hemoglobin 15.7 g/dL (14.1-18.0); Immature Granulocytes % 0.3 %; Mean Corpuscular HGB Conc 33.5 g/dL (31.8-35.4); Mean Corpuscular Hemoglobin 29.0 pg (27.0-31.2); Mean Corpuscular Volume 86.3 fl (80-94); Nucleated Red Blood Cells % 0 %; Platelet Count 219 K/mm3 (142-424); Red Blood Count 5.42 M/mm3 (4.60-6.20); Red Cell Distribution Width-SD 42.9 fL; White Blood Count 7.5 K/mm3 (4.8-10.8)
[2024-12-05 16:33] LABS: Albumin Level 4.2 g/dl (3.5-5.0); Chloride 103 mmol/L (98-107); Potassium 4.1 mmoL/L (3.5-5.1); Sodium 138 mmol/L (136-145)
[2024-12-05 16:36] LABS: Alanine Aminotransferase 18 U/L (12-78); Albumin/Globulin Ratio 0.9 (1.1-1.8); Alkaline Phosphatase 64 U/L (38-126); Anion Gap 10.1 mEq/L (5-15); Aspartate Amino Transferase 24 U/L (17-59); Bilirubin,Total 1.1 mg/dl (0.2-1.3); Blood Urea Nitrogen 9 mg/dl (9-20); Calcium 10.0 mg/dl (8.4-10.2); Carbon Dioxide 29 mmol/L (22.0-30.0); Creatinine Clearance Estimated 126 mL/min (50-200); Creatinine,Serum 0.90 mg/dl (0.66-1.25); Estimated Glomerular Filt Rate 100 ml/min (>60); GFR (African American) 122 ML/MIN (>60); Globulin 4.6 g/dL (1.3-3.2); Glucose 89 mg/dl (74-100); Total Protein,Serum 8.8 g/dl (6.3-8.2)
[2024-12-05] MEDS: SODIUM CHLORIDE 0.9% 10ML SYR (RAD ONLY) 10 ML IV (16:47)
[2024-12-05] MEDS: IOPAMIDOL-370 (76%);100ML BOTTLE 75 ML IV (16:47)
== END 2024-12-05 19:18 | disposition home or self-care (01) ==
PROVIDERS: Physician Assistant; Emergency Provider Student in an Organized Health Care Education/Training Program
DX: R10.30 Lower abdominal pain, unspecified (principal)
CPT/HCPCS: 74177; 80053; 81001; 85025; 87491; 87591; 87661; 96361; 96374; 96375; 99284; J1885; J2405; J7030; Q9967

== ENCOUNTER 2025-03-12 12:23 | Emergency (ER) | payer OTHER, SELFPAY ==
--- OUTSIDE RECORDS SUMMARY | 2025-03-12 12:38 | XMS_ITS | Clinical Summary ---
[facility] Organization [facility] Address [address] [place] [address] Care Team Providers Care Client Application Support Specialist Name Role Phone Provider, No Known Primary [...] ANNUAL PHYSICAL 02/09/2019 HEPATITIS C SCREENING 02/09/2019 INFLUENZA VACCINE 12/12/2024 Pneumococcal Vaccine 0-49 Aged Out No longer eligible based on patient's age to complete [place] [id number] Care Teams Client Application Support Specialist Relationship Specialty Start Date End Date Provider, No Known [facility] [place] [address] PCP - General 02/09/19
[2025-03-12 12:45] VITALS: BP 144/86; PULSE 71; O2SAT 98
--- NOTE | 2025-03-12 12:45 | CT_ITS ---
FINAL REPORT TECHNIQUE: After the administration of oral and intravenous contrast, axial images were obtained through the abdomen and pelvis by computed tomography. The study was performed with techniques to keep radiation dose as low as reasonably achievable, (ALARA). Individual dose reduction techniques using automated exposure control or adjustment of mA and/or kV according to the patient's size were employed. CLINICAL HISTORY: inguinal pain COMPARISON: 12/05/2024 FINDINGS: Abdomen: The lung bases are clear. The liver parenchyma is homogeneous. The gallbladder is present. The spleen, pancreas, adrenals and kidneys appear unremarkable. The aorta is normal in caliber. There is no free fluid or adenopathy. Pelvis: The appendix is normal. The urinary bladder is unremarkable. There is no free fluid or adenopathy. IMPRESSION: No acute intra-abdominal process. Reviewed, Interpreted and Dictated by Tenzin Mclean MD Transcribed by Anuradha Jessica Authenticated and [facility]
--- NOTE | 2025-03-12 12:46 | US_ITS ---
FINAL REPORT TECHNIQUE: Ultrasound images of the testicles were obtained bilaterally. Color Doppler images were obtained. CLINICAL HISTORY: scrotal pain FINDINGS: The testicles appear to be low-volume. Arterial flow is identified bilaterally. No intratesticular masses are identified. IMPRESSION: Low volume testicles without evidence of mass or torsion. Reviewed, Interpreted and Dictated by Tenzin Mclean MD Transcribed by Anuradha Jessica [facility] and [facility]
[2025-03-12 12:52] LABS: Hematocrit 46.8 % (42.0-52.0); Hemoglobin 15.8 g/dL (14.1-18.0); Immature Granulocytes % 0.3 %; Mean Corpuscular HGB Conc 33.8 g/dL (31.8-35.4); Mean Corpuscular Hemoglobin 28.8 pg (27.0-31.2); Mean Corpuscular Volume 85.4 fl (80-94); Nucleated Red Blood Cells % 0 %; Platelet Count 227 K/mm3 (142-424); Red Blood Count 5.48 M/mm3 (4.60-6.20); Red Cell Distribution Width-SD 39.1 fL; White Blood Count 12.0 K/mm3 (4.8-10.8)
[2025-03-12 12:54] LABS: Albumin Level 4.0 g/dl (3.5-5.0); Chloride 102 mmol/L (98-107); Potassium 3.9 mmoL/L (3.5-5.1); Sodium 137 mmol/L (136-145)
[2025-03-12 12:56] LABS: Alanine Aminotransferase 22 U/L (12-78); Anion Gap 9.9 mEq/L (5-15); Aspartate Amino Transferase 31 U/L (17-59); Blood Urea Nitrogen 10 mg/dl (9-20); Carbon Dioxide 29 mmol/L (22.0-30.0); Creatinine,Serum 0.80 mg/dl (0.66-1.25); Estimated Glomerular Filt Rate 114 ml/min (>60); GFR (African American) 138 ML/MIN (>60)
--- NOTE | 2025-03-12 12:56 | ED_ITS ---
<Statement entered by Jt Rubio MD - 03/12/25 15:14> I was consulted by the EPHRAIM, and we discussed the complexity of the problems being addressed. I approve the treatment and management plan for this patient's care in the emergency department, thus performing a substantive portion of the medical decision making. Jt Rubio MD Discharge Plan Disposition Patient Disposition: Home, Self-Care Prescriptions Prescriptions: No Action doxycycline hyclate 100 mg tablet 100 mg PO BID 10 Days Qty: 20 0RF Referrals Follow up/Referrals: Provider,Referral, [Referring, Medical] - See instructions Activity Restrictions/Add. Instructions Additional Instructions/Restrictions: Increase fluids and rest. Your ultrasound and CT scan were okay today. I would like you to see primary care just to establish care and so you can follow-up on these things. If you have any more problems or concerns please see PCP. Clinical Impressions Clinical Impression: Abdominal pain, suprapubic Instructions Patient Instructions: DI for Pelvic Pain Print Language Print Language: Divehi Discharge ED Provider: Jt Rubio General Adult HPI General Chief complaint: Urogenital-Male Stated complaint: lower abd/side pain, foggy urine Time Seen by Provider: 03/12/25 12:29 History of Present Illness HPI narrative: 30-year-old male presents to the ED today with complaint of foggy urine . He has been having some lower abdominal pain as well. He comes in thinking that he may have strained his inguinal areas. He says he has strained it from having sex in the past and believes he has done it again. He has had pain for 2 weeks and 4 days. He says he has scrotal pain that moves back toward his rectum. He has no bloody stools. He does have dark and cloudy urine. He said no fevers or chills. No nausea or vomiting. He says it feels more like cramping. No redness or swelling in his scrotum. No hernias. No other symptoms at this time. Related Data Previous Rx's ?Medication ?Instructions ?Recorded doxycycline hyclate 100 mg tablet 100 mg PO BID 10 day s #20 tabs 06/09/24 Allergies Allergy/AdvReac Type Severity Reaction Status Date / Time No Known Allergies Allergy Verified 12/05/24 15:36 [facility] Disclaimer: The information contained in this section may have been updated after the patient was seen, as this information can be updated by other users. Social History Smoking Status: Current every day smoker alcohol intake: current alcohol intake frequency: a few times a week substance use type: marijuana current occupational status: employed Travel in the last 8 weeks?: None current occupational exposures/hazards: No Have you lived/traveled outside [place] in past 30 days?: No Contact w/someone who lives/traveled outside [place] past 30 days?: No Exposure to someone with infectious disease in past 14 days?: No Do you have a fever (greater than 100.4 F or 38 C)?: No Have you tested positive for COVID-19?: No Exposed to someone with COVID-19 in past 14 days?: No Do you have a sore throat?: No Do you have a cough?: No Do you have any weakness?: No Do you have any diarrhea?: No Are you experiencing any unusual bleeding?: No Do you have any muscle aches/pain?: No Do you have any abdominal pain?: Yes Are you experiencing loss of taste or smell?: No ROS Obtained: Yes Systems reviewed as appropriate & no additional complaints except as documented Constitutional Constitutional: Reports as per HPI Physical Exam General General appearance: alert and in no apparent distress Head Head exam: normocephalic Eye Eye exam: Present PERRL and EOMI ENT ENT exam: Present normal oropharynx and mucous membranes moist Neck Neck exam: Present full ROM and trachea midline Respiratory Respiratory exam: Present normal lung sounds bilaterally Cardiovascular Cardiovascular exam: Present regular rate, normal rhythm, normal heart sounds, +S1 and +S2 Abdominal Exam Abdominal exam: Present soft and normal bowel sounds Abdominal tenderness: Present suprapubic and mild Extremities Exam Extremities exam: Present full ROM and normal capillary refill Neurological Exam Neurological exam: Present alert, oriented X3 and normal gait Skin Skin exam: Present warm and dry Medical Decision Making Medical Records Screening: Per USPSTF and CDC recommendations, given the prevalence of disease in our region, it is our hospital?s policy to screen for HIV and viral Hepatitis for all patients aged 18 and over and those with ongoing risk factors. Dex Inquiry Pt receiving controlled substance: No Dex was queried for this patient: No Vital Signs: 03/12/25 12:45 03/12/25 12:57 Temperature 98.8 F Temperature Source Oral Pulse Rate 71 Pulse Rate [Right] 69 Respiratory Rate 17 Blood Pressure 144/86 H Blood Pressure [Right Arm] 144/86 H Blood Pressure Mean [Right Arm] 105 02 Sat by Pulse Oximetry 98 97 Lab Data Lab Results 03/12/25 12:31: Urine Color Yellow, Urine Appearance Clear, Urine pH 7.5, Ur Specific [place] 1.015, Urine Protein Negative, Urine Glucose (UA) Negative, Urine Ketones Negative, Urine Blood Negative, Urine Nitrate Negative, Urine Bilirubin Negative, Urine Urobilinogen 0.2, Ur Leukocyte Esterase Negative, Urine RBC None, Urine WBC None, Ur Squamous Epith Cells Occasional, Urine Bacteria None 03/12/25 12:40: WBC 12.0 H, RBC 5.48, Hgb 15.8, Hct 46.8, MCV 85.4, MCH 28.8, MCHC 33.8, RDW 12.7, Plt Count 227, MPV 11.1 H, Neut % (Auto) 71.7, Lymph % (Auto) 18.2, [place] % (Auto) 6.3, Eos % (Auto) 2.9, Baso % (Auto) 0.6, Neut # (Auto) 8.6 H, Lymph # (Auto) 2.2, [place] # (Auto) 0.8, Eos # (Auto) 0.4, Baso # (Auto) 0.1, Sodium 137, Potassium 3.9, Chloride 102, Carbon Dioxide 29, Anion Gap 9.9, BUN 10, Creatinine 0.80, Estimated GFR 114, Est GFR ( Amer) 138, Glucose 99, Calcium 9.9, Magnesium 1.9, Total Bilirubin 1.3, AST 31, ALT 22, Alkaline Phosphatase 67, Total Protein 9.1 H, Albumin 4.0, Globulin 5.1 H, A lbumin/Globulin Ratio 0.8 L, Lipase 105 03/12/25 12:40 03/12/25 12:40 Orders (Tests/Meds): ED MEDICATIONS Discontinued Medications Generic Name Dose Route Start Last Admin Trade Name Freq PRN Reason Stop Dose Admin Acetaminophen 1,000 mg 03/12/25 12:43 03/12/25 13:36 Acetaminophen 1,000mg/100ml Vial IV 03/12/25 12:44 1,000 mg ONCE ONE Administration Iopamidol 75 ml 03/12/25 13:07 03/12/25 13:08 Iopamidol-370 (76%);100ml Bottle IV 03/12/25 13:08 75 ml ONCE ONE Administration Ketorolac Tromethamine 30 mg 03/12/25 12:43 03/12/25 13:37 Ketorolac 30mg/Ml Vial IV 03/12/25 12:44 30 mg ONCE ONE Administration Orphenadrine Citrate 60 mg 03/12/25 12:43 03/12/25 13:37 Orphenadrine Citrate 60mg/2ml Vial IV 03/12/25 12:44 60 mg ONCE ONE Administration Sodium Chloride 10 ml 03/12/25 13:07 03/12/25 13:08 Sodium Chloride 0.9% 10ml Syr (Rad Only) IV 03/12/25 13:08 10 ml ONCE ONE Administration ORDERS Category Date Time Status CT abdomen pelvis w con Stat Cat Scan 03/12/25 12:45 Completed CBC [Complete Blood Count Auto Diff] Stat Lab 03/12/25 12:40 Completed Comprehensive Metabolic Panel Stat Lab 03/12/25 12:40 Completed Lipase Stat Lab 03/12/25 12:40 Completed Magnesium Stat Lab 03/12/25 12:40 Completed Urinalysis and Microscopic Stat Lab 03/12/25 12:31 Completed US Testicular Stat Ultrasound 03/12/25 12:46 Completed Medical Decision Narrative: patient is a 30-year-old male presenting to the emergency department for evaluation of scrotal pain and inguinal pain bilaterally. Patient is hemodynamically stable and nontoxic-appearing upon arrival, afebrile. Differential diagnosis includes torsion, strain or sprain of inguinal areas, among others. Workup will be conducted with hematologic labs, specific imaging. Initial inventions include crystalloid bolus, analgesics, antibiotics. Initial workup reviewed by me hematologic labs are remarkable for slightly elevated white count at 12, normal H&H, potassium was normal BUN and creatinine were normal patient has normal liver enzymes his urine was negative. Patient had abdomen and pelvis CT that showed no intra-abdominal process and he had a scrotal ultrasound to rule out torsion and he had no mass or torsion on the ultrasound. Patient and I discussed that this likely is a sprain or strain and that he needs to follow-up for further imaging and testing by PCP. Patient safe for discharge home Critical Care Critical Care Time Critical Care Time: No
[2025-03-12 12:57] VITALS: BP 144/86; PULSE 69; RESP 17; TEMP 37.1; O2SAT 97; BMI 32.0
[2025-03-12 12:57] LABS: Albumin/Globulin Ratio 0.8 (1.1-1.8); Alkaline Phosphatase 67 U/L (38-126); Bilirubin,Total 1.3 mg/dl (0.2-1.3); Calcium 9.9 mg/dl (8.4-10.2); Globulin 5.1 g/dL (1.3-3.2); Glucose 99 mg/dl (74-100); Lipase 105 U/L (23-300); Magnesium 1.9 mg/dl (1.6-2.3); Total Protein,Serum 9.1 g/dl (6.3-8.2)
[2025-03-12 12:58] LABS: Microscopic, Urine URINE MICROSCOPIC (MICROSCOPIC)
[2025-03-12 13:01] LABS: Bilirubin,Urine Negative (Negative); Color,Urine YELLOW (Yellow); Glucose,Urine (UA) Negative (Negative); Ketones,Urine Negative (Negative); Leukocyte Esterase,Urine Negative (Negative); PH,Urine 7.5 (5.0-8.5); Protein,Urine Negative (Negative); Specific Gravity, Urine 1.015 (1.005-1.030); Urobilinogen,Urine 0.2 EU/dl (0.2)
[2025-03-12] MEDS: SODIUM CHLORIDE 0.9% 10ML SYR (RAD ONLY) 10 ML IV (13:08)
[2025-03-12] MEDS: IOPAMIDOL-370 (76%);100ML BOTTLE 75 ML IV (13:08)
[2025-03-12 13:10] LABS: Squamous Epithelial Cell,Urine Occasional #/hpf (0-5)
[2025-03-12] MEDS: ACETAMINOPHEN 1,000MG/100ML VIAL 1000 MG IV (13:36)
[2025-03-12] MEDS: ORPHENADRINE CITRATE 60MG/2ML VIAL 60 MG IV (13:37)
[2025-03-12] MEDS: KETOROLAC 30MG/ML VIAL 30 MG IV (13:37)
--- NOTE | 2025-03-12 13:58 | PC.NURSE ---
call made to rad to check on status of ultrasound, radio station operator states that scan is locked and being read.
[2025-03-12 14:57] VITALS: BP 134/65; PULSE 53; RESP 16; TEMP 36.7; O2SAT 99
== END 2025-03-12 14:59 | disposition home or self-care (01) ==
PROVIDERS: Nurse Practitioner; Emergency Provider Student in an Organized Health Care Education/Training Program; PCP Nurse Practitioner Family
DX: R10.24 Suprapubic pain (principal)
CPT/HCPCS: 74177; 76870; 80053; 81001; 83690; 83735; 85025; 96374; 96375; 99284; 99285; J0131; J1885; J2360; Q9967